=== PATIENT | female | born 1945 | race Caucasian/White ===

== ENCOUNTER → 2016-07-07 | Outpatient (CLI) | payer OTHER, MEDICARE | LOC: FIMAGING 12:02 | DX: Z12.31 Encounter for screening mammogram for malignant neoplasm of breast (principal) | CPT/HCPCS: G0202 ==

== ENCOUNTER → 2017-01-02 | Outpatient (CLI) | payer OTHER, MEDICARE | LOC: FIMAGING 10:40 | PROVIDERS: ATTEND Neurological Surgery | DX: Z98.1 Arthrodesis status (principal); G89.29 Other chronic pain ==

== ENCOUNTER → 2017-09-01 | Outpatient (CLI) | payer OTHER, MEDICARE | LOC: FIMAGING 14:35 | PROVIDERS: ATTEND Internal Medicine | DX: Z12.31 Encounter for screening mammogram for malignant neoplasm of breast (principal) ==

== ENCOUNTER → 2017-11-10 | Outpatient (CLI) | payer OTHER, MEDICARE | LOC: FIMAGING 14:04 | PROVIDERS: ATTEND Orthopaedic Surgery | DX: Z01.818 Encounter for other preprocedural examination (principal); M19.011 Primary osteoarthritis, right shoulder; M25.511 Pain in right shoulder ==

== ENCOUNTER → 2018-07-06 | Outpatient (CLI) | payer OTHER, MEDICARE | LOC: FIMAGING 11:42 | PROVIDERS: ATTEND Internal Medicine | DX: Z98.1 Arthrodesis status (principal); M48.03 Spinal stenosis, cervicothoracic region; M53.83 Other specified dorsopathies, cervicothoracic region; M43.13 Spondylolisthesis, cervicothoracic region ==